=== PATIENT | female | born 1955 | race Caucasian/White ===

== ENCOUNTER → 2016-10-08 | Outpatient (CLI) | payer BC ==
[~2016-10-08] MED LIST: IBUP-1428 PO; OXYC-57 PO; PROG100C6 PO
== END | disposition home or self-care (01) ==
LOC: C.PAPS 13:41
PROVIDERS: ATTEND Obstetrics & Gynecology
DX: Z01.419 Encounter for gynecological examination (general) (routine) without abnormal findings (principal)

== ENCOUNTER → 2017-03-12 | Outpatient (CLI) | payer BC ==
--- NOTE | 2017-03-15 08:20 | DIAGNOSTIC IMAGING REPORT ---
RIGHT KNEE 2 VIEWS HISTORY: Joint pain, knee R Right COMPARISON: None. FINDINGS: There is no fracture or dislocation. Soft tissues are unremarkable. No radiopaque foreign bodies. No knee effusion. Cartilage spaces are maintained for age. Tiny marginal osteophytes at the medial and patellofemoral compartments. IMPRESSION: No fractures. Minimal degenerative change. Electronically signed by: Patricio To M.D. 03/15/2017 8:18 AM Dictated Date/Time: 03/15/2017 8:16 AM
== END | disposition home or self-care (01) ==
LOC: C.RADPV 15:17
PROVIDERS: ATTEND Neuromusculoskeletal Medicine & OMM
DX: M25.561 Pain in right knee (principal)

== ENCOUNTER → 2017-04-30 | Outpatient (CLI) | payer BC ==
--- NOTE | 2017-04-30 15:57 | MAMMOGRAPHY REPORT ---
BILATERAL DIGITAL SCREENING MAMMOGRAM TOMOSYNTHESIS WITH CAD: 04/30/2017 CLINICAL HISTORY: Routine screening. Patient has no complaints. TECHNIQUE: Breast tomosynthesis in addition to standard 2D mammography was performed. Current study was also evaluated with a Computer Aided Detection (CAD) system. COMPARISON: Comparison is made to exams dated: 03/05/2016 mammogram, 02/14/2015 mammogram, 02/13/2014 m ammogram, 02/09/2013 mammogram, 02/09/2012 mammogram, and 12/22/2010 mammogram - [facility] nter. BREAST COMPOSITION: There are scattered areas of fibroglandular density in both breasts. FINDINGS: No suspicious masses, calcifications, or areas of architectural distortion are noted in ei ther breast. There has been no significant interval change compared to prior exams. IMPRESSION: ACR BI-RADS CATEGORY 1: NEGATIVE There is no mammographic evidence of malignancy. A 1 year screening mammogram is recommended. The pa tient will receive written notification of the results. Approximately 10% of breast cancers are not detected with mammography. A negative mammographic report should not delay biopsy if a clinically suggestive mass is present. Brigitte Anthony M.D. ah/:04/30/2017 14:53:12 [employer]ator Plant Laborer: Martha PARRISH(Chase)(M), [facility] letter sent: Normal 1/2 BI-RADS Code: ACR BI-RADS Category 1: Negative
== END | disposition home or self-care (01) ==
LOC: C.MAMM 13:41
PROVIDERS: ATTEND Obstetrics & Gynecology
DX: Z12.31 Encounter for screening mammogram for malignant neoplasm of breast (principal)

== ENCOUNTER → 2017-10-12 | Outpatient (CLI) | payer BC | END | disposition home or self-care (01) | LOC: C.PAPS 11:34 | PROVIDERS: ATTEND Obstetrics & Gynecology | DX: Z01.419 Encounter for gynecological examination (general) (routine) without abnormal findings (principal) ==

== ENCOUNTER 2018-08-31 08:41 | Inpatient (IN) ==
--- NOTE | 2018-08-03 09:29 | Anesthesiology Consultation ---
Date of Service August 03, 2018 Assessment & Plan (1) Encounter for pre-operative examination: Chart Review Chart Review: Acceptable Risk for Surgery and Patient seen in Pre Admission Testing Consults Requested none Teaching & Discussion Pre-Anesthesia Teaching/Discussion Notes: Instructed NPO after midnight before surgery, except medications with 15 cc of water. Medication instructions provided according to the PAT guidelines. History Surgery Operation Date: 08/31/18 09:05 Proposed Procedures p Left Total Knee Arthroplasty - Ramsey Hughes MD Height/Weight Height: 5 ft 1.5 in Weight: 95.6 kg Allergies Allergy/AdvReac Type Severity Reaction Status Date / Time Sulfa (Sulfonamide Allergy Intermediate SWELLING, Verified 08/02/18 15:25 Antibiotics) SOB Medications Home Medications Medication Instructions Recorded Confirmed Last Taken cholecalciferol (vitamin D3) 1,000 unit PO QAM 08/02/18 08/02/18 Unknown [Vitamin D3] multivitamin 1 tab PO DAILY 08/02/18 08/02/18 Unknown omega 0-imt-qla-fish oil [Fish Oil] 1 cap PO DAILY 08/02/18 08/02/18 Unknown ranitidine HCl 150 mg PO DAILY PRN 08/02/18 08/02/18 Unknown acetaminophen [Tylenol] 325 mg PO Q6H PRN 08/03/18 08/03/18 Unknown diphenhydramine HCl [Benadryl] 25 mg PO HS PRN 08/03/18 08/03/18 Unknown halobetasol propionate 1 applic/day TOPICAL DAILY PRN 08/03/18 08/03/18 Unknown ibuprofen 200 mg PO QID PRN 08/03/18 08/03/18 Unknown pseudoephedrine HCl 1 tab PO DAILY PRN 08/03/18 08/03/18 Unknown Past Medical History Medical History GERD (gastroesophageal reflux disease) Nausea and vomiting after administration of anesthetic agent Obesity Osteoarthritis Past Family History Family History Father Family history of diabetes mellitus Daughter No problems noted. Past Surgical History Surgical History History of arthroscopy BILATERAL KNEE History of bilateral tubal ligation History of carpal tunnel release RIGHT History of cholecystectomy LAP History of colonoscopy History of esophagogastroduodenoscopy (EGD) S/P arthroscopy of shoulder LEFT Past Anesthesia History No Hx of Anesthesia Complications and No Family Hx of Anesthesia Complications History of PONV Yes Motion Sickness Screening History of Motion Sickness: Yes Social History Smoking Status: Never smoker Do You Dip or Chew Tobacco: No Hx Alcohol Use: Yes Alcohol type: wine alcohol intake frequency: holidays/special occasions only Hx Substance Use: No substance use type: does not use Exercise / Class Metabolic Activity III < 4 Walking/Shop/Light housework (Limited due to knee pain. Able to slowly/ painfully climb stairs due to knees. Denies CP. Does get some SOB with activity since gaining 40lb over last 5 years. ) Review of Systems Patient denies chest pain, shortness of breath, reflux (controlled with Zantac) , cough, wheezing, palpitations. +GUDINO (since gaining 40 lbs over last 5 years due to not walking from knee pain) +joint pain (knees, hands, back, etc) Physical Exam Vital Signs BP: 138/85 P: 80 R: 16 T: 97.4 SPO2: 97% on RA Constitutional + obese ENMT Mouth: + dental restorations Thyromental Distance: > or= 3.5 Finger Breadths (3.5) Mallampati Class: II Neck normal visual inspection and trachea midline; neck extension not limited Respiratory normal respiratory effort Auscultation: lungs clear to auscultation bilaterally Cardiovascular Rate/Rhythm: regular rate and regular rhythm Heart Sounds: no murmur Vessels: no carotid bruit Neurologic moves all extremities Psychiatric Orientation: alert and oriented x 3 Testing Electrocardiogram Date: 08/03/18 Findings: + NSR @ (75) When compared with ECG of 08/17/09, there is a questionable change is QRS axis. Chest X-Ray Date: 08/03/18 Findings: + NAD Laboratory Results 08/03/18 10:09 08/03/18 10:09 Blood Type O Positive 08/03/18 10:09 Antibody Screen NEGATIVE 08/03/18 10:09 PT 10.0 Seconds (9.0-12.0) 08/03/18 10:09 INR 1.0 (0.9-1.1) 08/03/18 10:09 APTT 27.8 Seconds (21.0-31.0) 08/03/18 10:09
--- NOTE | 2018-08-03 09:32 | PAT Medication Instructions ---
Medication Instructions Date of Service August 03, 2018 Home Medications cholecalciferol (vitamin D3) 1,000 unit PO QAM multivitamin 1 tab PO DAILY omega 8-vox-kez-fish oil [Fish Oil] 1 cap PO DAILY ranitidine HCl 150 mg PO DAILY NEEDED acetaminophen [Tylenol] 325 mg PO Q6H PRN diphenhydramine HCl [Benadryl] 25 mg PO HS PRN halobetasol propionate 1 applic/day TOPICAL DAILY PRN ibuprofen 200 mg PO QID PRN pseudoephedrine HCl 1 tab PO DAILY PRN ASK your surgeon for instructions ibuprofen 200 mg PO QID PRN STOP taking 2 weeks before surgery omega 9-kif-awz-fish oil [Fish Oil] 1 cap PO DAILY STOP taking 24 hours before surgery halobetasol propionate 1 applic/day TOPICAL DAILY PRN DO NOT take the morning of surgery cholecalciferol (vitamin D3) 1,000 unit PO QAM multivitamin 1 tab PO DAILY diphenhydramine HCl [Benadryl] 25 mg PO HS PRN pseudoephedrine HCl 1 tab PO DAILY PRN Take morning of surgery With a small sip of water, OTHERWISE NOTHING TO EAT OR DRINK AFTER MIDNIGHT: ranitidine HCl 150 mg PO DAILY NEEDED acetaminophen [Tylenol] 325 mg PO Q6H PRN Take evening before surgery acetaminophen [Tylenol] 325 mg PO Q6H PRN diphenhydramine HCl [Benadryl] 25 mg PO HS PRN pseudoephedrine HCl 1 tab PO DAILY PRN Other Notes If you have any questions please call us at [phone] or [phone] or [phone] or [phone]
[2018-08-03 10:29] LABS: Basophils # (auto) 0.03 K/uL (0-0.2); Basophils % (auto) 0.5 %; Eosinophils # (auto) 0.15 K/uL (0-0.5); Eosinophils % (auto) 2.3 %; Hematocrit (blood only) 41.4 % (37-47); Hemoglobin 13.5 g/dL (12.0-16.0); Immature Granulocytes # (auto) 0.01 K/uL (0.00-0.02); Immature Granulocytes % (auto) 0.2 %; Lymphocytes # (auto) 1.62 K/uL (1.2-3.4); Lymphocytes % (auto) 25.1 %; Mean Corpuscular Hgb Conc 32.6 g/dL (32-36); Mean Platelet Volume 10.6 fL (7.4-10.4); Monocytes # (auto) 0.64 K/uL (0.11-0.59); Monocytes % (auto) 9.9 %; Neutrophils # (auto) 4.01 K/uL (1.4-6.5); Platelet Count 249 K/uL (130-400); RDW Coefficient of Variation 13.8 % (11.5-14.5); RDW Standard Deviation 43.9 fL (36.4-46.3); Red Blood Count 4.76 M/uL (4.2-5.4); White Blood Count 6.46 K/uL (4.8-10.8)
--- NOTE | 2018-08-03 10:36 | XRay Report ---
XR chest Pre-admission PA/Lat CLINICAL HISTORY: 62 years-old Female presenting with preoperative assessment. TECHNIQUE: PA and lateral views of the chest were obtained. COMPARISON: None. FINDINGS: Cardiomediastinal silhouette normal. Lungs and pleural spaces clear. Degenerative changes of the thor acic spine. Cholecystectomy clips noted. IMPRESSION: 1. No acute cardiopulmonary disease. Electronically signed by: Elie Bates M.D. 08/03/2018 10:35 AM
[2018-08-03 10:42] LABS: Partial Thromboplastin Ratio 1.1; Partial Thromboplastin Time 27.8 Seconds (21.0-31.0)
[2018-08-03 13:30] LABS: BUN Creatinine Ratio 13.2 (10-20); Calcium 9.5 mg/dl (8.5-10.1); Creatinine Clr Calc Pharmacy 74.1 ml/min; Est GFR (African American) 86.3; Est GFR (Non-African American) 74.5; Potassium 3.8 mmol/L (3.5-5.1)
--- NOTE | 2018-08-25 09:06 | History and Physical Report ---
DATE OF ADMISSION: 08/31/2018 CHIEF COMPLAINT: Bilateral knee pain, left side greater than the right. HISTORY OF PRESENT ILLNESS: The patient is a 62-year-old female who presents for followup and surgical treatment of her knees. She has got a long history of bilateral knee pain and discomfort, left side greater than right. She has been through extensive conservative treatment including steroid shots which helped for about a month or so and viscosupplementation which did not really help at all. Pain has been progressive in nature. It is mostly on the medial side of her knee, but some global pain. The more she walks, the more it hurts. She has nighttime pain. She would like to proceed with surgical treatment. Of note, she does have history of knee arthroscopy in both knees back in 2005. PAST MEDICAL HISTORY: Significant for: 1. Known gastroesophageal reflux disease. 2. Low back pain. 3. Obesity with BMI of 40. PAST SURGICAL HISTORY: Previous surgeries include: 1. Tubal ligation. 2. Bilateral knee arthroscopies done about 12 years ago. 3. Shoulder surgery. 4. Carpal tunnel release. ALLERGIES: SULFA. CURRENT MEDICINES: Include: 1. Multivitamin. 2. Vitamin D. 3. Fish oil. 4. Ibuprofen. 5. Allergy meds. SOCIAL HISTORY: A 62-year-old female. She is . Lives in [place]. Does not smoke. FAMILY HISTORY: Noncontributory. REVIEW OF SYSTEMS: Negative for diabetes, neurologic problems, vascular problems or bleeding disorders. No chest pain or shortness of breath. No history of DVT or PE. No known bleeding problems. PHYSICAL EXAMINATION: GENERAL: Reveals a healthy, pleasant middle-aged female. Looks to be in pretty good health. HEENT: Benign. NECK: Supple. No lymphadenopathy. LUNGS: Clear to auscultation. HEART: Regular rate and rhythm. ABDOMEN: Soft, nontender, nondistended. EXTREMITIES: Grossly neurovascularly intact except as follows: Examination of both knees reveals patient walks with a little bit of a waddling gait. She got varus alignment to both knees. She has got well healed portal sites over both knees. She has small effusions in both knees. She is tender over the medial joint line bilaterally. Range of motion is symmetric with near full extension to about 125 degrees of flexion. There is no instability and no pain with hip motion on either side. X-RAYS: X-rays of both knees reveal advanced medial compartment arthritis. The left side is a little bit worse than the right. She has got near complete loss of her joint space. She has got some patellofemoral disease as well. ASSESSMENT: A 62-year-old female with history of bilateral knee scopes in the past with bilateral knee degenerative joint disease. The left side is more symptomatic than the right. She has failed conservative treatment and would like to proceed with left knee replacement. PLAN: We will take her to the operating room and do a left total knee replacement. The risks and benefits of this procedure were explained to the patient including but not limited to DVT, PE, , infection, neurological injury, vascular injury, bleeding problem, pain, limited range of motion, stiffness, failure to relieve symptoms, incomplete relief of symptoms, need for further surgery in the future, incomplete relief of symptoms, need for revision surgery. The patient understands and desires to proceed. Informed consent was obtained. She did not do well with pain medicines, we will make sure she gets some Zofran and we will probably send her home with some Zofran after her hospital stay.
[~2018-08-31 08:41] MED LIST changes: +ACETAMINOPHEN 500 MG TAB PO SCH; +BUPIVACAINE 0.5 % 5 MG/1 ML PF 10ML VIAL ONE; +BUPIVACAINE LIPOSOME/PF 266 MG, BUPIVACAINE/EPINEPHRINE 50 ML, SODIUM CHLORIDE 0.9% 30 ... INFIL SCH; +CEFAZOLIN 2000MG 2,000 MG/15 ML SYR IV SCH; +EPINEPHrine INJ 1 MG/ML AMP ONE; +FAMOTIDINE 20 MG TAB PO SCH; +GABAPENTIN 300 MG x 2 PO SCH; -IBUP-1428 PO; +LR 500ML BOLUS, THEN 15ML/HR IV SCH; +LR 60ML/HR IV SCH; +METOCLOPRAMIDE HCL 10 MG TABLET PO SCH; -OXYC-57 PO; -PROG100C6 PO; +ROPIVACAINE 0.5% 5 MG/ML 30 ML VIAL ONE; +SCOPOLAMINE 1.5 MG TDSY TD SCH; +TRANEXAMIC ACID 1,000 MG **IV Intra-op IV SCH
--- NOTE | 2018-08-31 08:48 | History & Physical Bridge Note ---
Date of Service August 31, 2018 History & Physical Bridge Note I have examined the patient, reviewed the History & Physical and in the interval since the performance of the History & Physical I have noted the following changes of clinical significance: no changes noted
[2018-08-31] MEDS ORDERED: MIDAZOLAM HCL 1 MG/ML 2ML VIAL ONE ×2 (09:26→10:48)
[2018-08-31] MEDS ORDERED: KETAMINE HCL INJ 50 MG/ML 10 ML VIAL ONE (10:20)
[2018-08-31] MEDS ORDERED: fentaNYL citrate 100 MCG/2 ML VIAL IV PRN (10:24)
[2018-08-31] MEDS ORDERED: ATROPINE SULFATE 0.1 MG/ML 10ML SYR IV PRN (10:24)
[2018-08-31] MEDS ORDERED: PHENYLEPHRINE 100MCG/ML 5ML SYR IV PRN (10:24)
[2018-08-31] MEDS ORDERED: ePHEDrine sulfate 50 MG/ML AMP IV PRN (10:24)
[2018-08-31] MEDS ORDERED: HYDROmorphone INJ 1 MG/ML SYRINGE IV PRN (10:24)
[2018-08-31] MEDS ORDERED: ONDANSETRON INJ 2 MG/ML 2 ML VIAL IV PRN ×2 (10:24→14:27)
[2018-08-31] MEDS ORDERED: MEPERIDINE HCL 25 MG/ML CARP IV PRN (10:24)
[2018-08-31] MEDS ORDERED: LABETALOL HCL IV 5 MG/ML 20ML IV PRN (10:24)
[2018-08-31] MEDS ORDERED: BUPIVACAINE 0.25% 30 ML VIAL ONE (11:17)
[2018-08-31] MEDS ORDERED: SODIUM CHLORIDE 0.9% PF 50 ML VIAL ONE (11:17)
[2018-08-31] MEDS ORDERED: BUPIVACAINE LIPOSOME 1.3% 266 MG/20 ML VIAL ONE (11:17)
[2018-08-31] MEDS ORDERED: EPINEPHrine INJ 1 MG/ML AMP ONE (11:17)
[2018-08-31] MEDS ORDERED: BACITRACIN INJ 50,000 UNIT VIAL ONE (11:17)
[2018-08-31] MEDS ORDERED: PROPOFOL IV EMULSION 10 MG/ML 20 ML VIAL IV ONE (12:03)
[2018-08-31] MEDS ORDERED: DEXAMETHASONE SOD INJ 4 MG/ML VIAL ONE (12:03)
[2018-08-31] MEDS ORDERED: LIDOCAINE HCL 2% 2 ML VIAL/AMP(20MG/ML) INFIL ONE (12:03)
[2018-08-31] MEDS ORDERED: GLYCOPYRROLATE 0.2 MG/ML VIAL ONE (12:03)
[2018-08-31] MEDS ORDERED: ONDANSETRON INJ 2 MG/ML 2 ML VIAL ONE (12:03)
--- NOTE | 2018-08-31 13:28 | Post Operative Brief Note ---
Immediate Post Op Note v1 Date of Surgery August 31, 2018 Pre & Post Diagnosis Operation Date: 08/31/18 11:25 Pre-Op Diagnosis: Left Knee Degenerative Joint Disease Post-Op Diagnosis: Left Knee Degenerative Joint Disease Procedure Operation Date: 08/31/18 11:25 Actual Procedures p Left Total Knee Arthroplasty(Left) - Ramsey Hughes MD Surgeon Ramsey Hughes MD Tank Cleaner Karo, PAC Estimated Blood Loss 50 Findings Consistent with Post-Op Diagnosis Fluids 1600 cc Specimens Left Knee Drains Caraballo Catheter Anesthesia Type Spinal MAC Complications none Disposition Accompanied Patient To Recovery: No Disposition: Recovery Room
--- NOTE | 2018-08-31 13:47 | XRay Report ---
LEFT KNEE 2 VIEWS History: Left total knee arthroplasty. Degenerative arthritis. Postop. FINDINGS: The patient is status post a left total knee arthroplasty. The hardware is intact. No fract ure or dislocation. Skin henok are in place. IMPRESSION: Left total knee arthroplasty. No evidence for hardware complication. Electronically signed by: Patricio To M.D. 08/31/2018 1:46 PM
--- NOTE | 2018-08-31 14:10 | Anesthesiology Progress Note ---
Date of Service August 31, 2018 Anesthesia Post Procedure Vital Signs Vital Signs: Temp Pulse Resp BP BP Pulse Ox 08/31/18 14:05 37.1 C 101 H 18 130/77 98 08/31/18 13:55 104 H 18 136/72 98 08/31/18 13:45 37.8 C H 102 H 18 125/69 100 08/31/18 13:35 37.8 C H 113 H 18 126/67 100 08/31/18 09:23 36.8 C 20 160/97 H 20 L Pain Intensity Left Knee: Pain Intensity: 1 Notes Mental Status: alert / awake / arousable Patient Amnestic to Procedure: Yes Nausea / Vomiting: adequately controlled Pain: adequately controlled Airway Patency, RR, SpO2: stable & adequate BP & HR: stable & adequate Hydration State: stable & adequate Neuraxial Anesthesia: was administered and sensory block is resolving Anesthetic Complications: no major complications apparent and Pt Satisfied with anesthetic care
[2018-08-31] MEDS ORDERED: NALOXONE HCL 0.4 MG/1 ML VIAL/CARP IV PRN (14:27)
[2018-08-31] MEDS ORDERED: MAGNESIUM HYDROXIDE SUSP 30 ML UDC PO PRN (14:27)
[2018-08-31] MEDS ORDERED: BISACODYL 10 MG SUPP PR PRN (14:27)
[2018-08-31] MEDS ORDERED: PSEUDOEPHEDRINE HCL 30 MG TAB PO PRN (14:27)
[2018-08-31] MEDS ORDERED: HYDROmorphone INJ 0.5 MG/0.5 ML SYR IV PRN (14:27)
[2018-08-31] MEDS ORDERED: METOCLOPRAMIDE HCL INJ 5 MG/ML 2 ML VIAL IV PRN (14:27)
[2018-08-31] MEDS: SODIUM CHLORIDE 0.9% 1000ML 1,000 ML IV SCH (14:44)
[2018-08-31] MEDS: CHECK SCOPOLAMINE PATCH PLACEMENT SCH (16:46)
[2018-08-31] MEDS: KETOROLAC 30 MG/ML VIAL IV SCH ×2 (16:48→21:18)
[2018-08-31] MEDS: ACETAMINOPHEN 500 MG TAB PO SCH (16:49)
[2018-08-31] MEDS: FERROUS GLUCONATE 324 MG TAB PO SCH (17:53)
[2018-08-31] MEDS ORDERED: TRANEXAMIC ACID 1,000 MG in 0.9 % SODIUM CHLORIDE 100 ML IV SCH (19:30)
[2018-08-31] MEDS: DOCUSATE SODIUM 100 MG CAP PO SCH (20:43)
[2018-08-31] MEDS: ASPIRIN 81 MG ECTAB PO SCH (20:44)
[2018-08-31] MEDS: SENNA 8.6 MG TAB PO SCH (20:44)
[2018-08-31] MEDS: CEFAZOLIN 2000MG 2,000 MG/15 ML SYR IV SCH (20:44)
[2018-08-31] MEDS: TAPENTADOL HCL ER 50 MG TABCR PO SCH (20:48)
--- NOTE | 2018-08-31 23:45 | Operative Report ---
DATE OF OPERATION: 08/31/2018 SURGEON: Ramsey Hughes MD GENERAL LABOR: MITZY Streeter PREOPERATIVE DIAGNOSIS: Left knee degenerative joint disease. POSTOPERATIVE DIAGNOSIS: Same. PROCEDURE PERFORMED: Left cemented posterior stabilized total knee arthroplasty. COMPLICATIONS: None. ESTIMATED BLOOD LOSS: 50 mL. FLUID REPLACEMENT: 1600 mL of crystalloid fluid replacement. ANESTHESIA: Spinal with adductor canal block. DRAINS: None. SPECIMENS: Left knee sent for pathology. OPERATIVE INDICATIONS: The patient is a 62-year-old female who has had a long history of bilateral knee pain and discomfort. She underwent knee arthroscopy 10+ years ago, which helped her for quite a number of years. Over the past several years, she developed increased pain and discomfort in both knees. The left knee is a bit worse than the right. She has failed all conservative care and elected to proceed with operative treatment. OPERATIVE FINDINGS: Operative findings revealed advanced left knee DJD. She had grade 4 changes of the medial as well as the patellofemoral compartment. She had a varus deformity to her knee with a moderate-sized joint effusion. Not a lot of bony eburnation, but full thickness cartilage loss. OPERATIVE IMPLANTS: Operative implants consisted of: 1. Biomet Vanguard size 57.5 left posterior stabilized femoral component. 2. A Biomet size 67 tibial tray. 3. A 10 mm posterior stabilized polyethylene insert. 4. A 28 x 8 all poly patella. OPERATIVE PROCEDURE: The patient was taken to the operating room, identified, and placed in the operating table in supine position. All contact areas were appropriately padded. IV antibiotics were provided by anesthesia team. Spinal anesthetic and adductor canal block had been provided in the holding area. Caraballo catheter was placed in sterile fashion. The left thigh tourniquet was then placed and left lower extremity was then prepped and draped in the usual sterile fashion. The left leg was elevated and exsanguinated with Esmarch and tourniquet was placed at 300 mmHg. An anterior approach to the left knee was then performed through a longitudinal incision centered over the patella. Sharp dissection was carried through subcutaneous tissues down to the level of the extensor mechanism. A medial parapatellar arthrotomy incision was made. Some subperiosteal dissection was carried out medially. The fat pad was resected from beneath the patellar tendon. Lateral patellofemoral ligament was released. The patella was everted and the knee was flexed. The osteophytes were taken off the distal femur. The ACL and PCL were then released from the distal femur and the tibia subluxated anteriorly. The external tibial alignment jig was then placed in the anterior face of the tibia and adjusted 14 mm medially. A proximal tibial cut was made to remove about a millimeter or two of bone from the most deficient aspect of the medial tibial plateau. Some osteophytes were taken off medial and posteromedially. The tibia was then sized to a size 67. Attention was then drawn to the femur. The distal femur was entered with a sharp drill bit. Intramedullary canal was suctioned. A left 5-degree valgus cutting guide was placed. Distal femoral cutting block was pinned in place. Distal femoral cut was made to take an additional 3 mm of bone off the distal femur. Femur was then sized to a size 57.5. We downsized this just slightly. The AP cutting block was pinned parallel to the epicondylar axis, which was 6 degrees of external rotation. The anterior cut, anterior chamfer, posterior cut, posterior chamfer cuts were made. Box cutting guide was placed and adjusted slightly lateral and the box cut was made. The knee was flexed. The remnants of the medial and lateral menisci were excised. The osteophytes were taken off the posterior aspect of the femur. A trial femoral component was placed. The tibial tray was pinned in maximum rotation, and drill and stem punch were used to create a defect in the proximal tibia for the tibial tray. The knee was then trialed and a 10 mm insert fit most appropriately. Attention was then drawn to the patella. The patella was cleaned of all soft tissues. Patellar thickness measured 21 mm in thickness, it was cut down to 13. It was sized to a size 28 patella. The locals were drilled for a 28 patella. The lateral osteophyte was removed. Patellar button was placed. Knee was taken through range of motion and patella tracked nicely with no thumbs test. Attention was then drawn toward placement of permanent components. All trial components were removed. Bone plug was placed in the distal femur to limit blood loss. A double batch of Palacos G cement was mixed. A Biomet Vanguard size 57.5 left posterior stabilized femoral component, Biomet size 67 tibial tray, a 10-mm posterior stabilized polyethylene insert, and a 28 x 8 all poly patella were then cemented in place. Knee was brought out into full extension until cement hardened. A final cement check was then performed. The pericapsular tissues were injected with a total of 100 mL of a combination of 20 mL of Exparel, 30 mL of normal saline, 50 mL of 0.25% Marcaine with epinephrine. The patient did receive 1 gram of tranexamic acid. The tourniquet was then let down for a tourniquet time of 60 minutes. Hemostasis was assured using electrocautery. The extensor mechanism was then closed with a combination of #1 PDS suture and #1 Vicryl suture in a [id number] fashion. Extensor mechanism was checked and found to be intact. The subcutaneous tissues were then closed with 2-0 Dexon suture in buried interrupted fashion. The skin was closed with skin henok. Leg was then cleaned and dried and a sterile dressing of Xeroform, 4 x 4's, sterile cast padding, and Neo bandage were applied. The patient was then transferred to the recovery room in stable condition. The patient tolerated the procedure well with no complications. All needle and sponge counts were correct at the end of the operation. I attest to the content of the Intraoperative Record and any orders documented therein. Any exception s are noted below.
[2018-09-01] MEDS: CHECK SCOPOLAMINE PATCH PLACEMENT SCH (01:02)
[2018-09-01] MEDS: ACETAMINOPHEN 500 MG TAB PO SCH ×3 (01:03→17:46)
[2018-09-01] MEDS: SODIUM CHLORIDE 0.9% 1000ML 1,000 ML IV SCH (01:04)
[2018-09-01] MEDS ORDERED: Nursing to Pharmacy Communication ONE ×2 (01:42→01:57)
[2018-09-01] MEDS: OXYCODONE HCL IR 5 MG TAB (IMMEDIATE RELEASE) PO PRN ×2 (01:51→13:45)
[2018-09-01] MEDS: KETOROLAC 30 MG/ML VIAL IV SCH ×4 (04:50→22:03)
[2018-09-01] MEDS: CEFAZOLIN 2000MG 2,000 MG/15 ML SYR IV SCH (04:56)
--- NOTE | 2018-09-01 07:30 | Progress Note ---
DATE: 09/01/2018 SUBJECTIVE: A 62-year-old white female postop day 1 from left knee replacement. She is doing well. The nausea that she had last night is improved. Pain is controlled. No chest pain or shortness of breath. Not feeling dizzy or lightheaded. OBJECTIVE: VITAL SIGNS: Temperature 36.8. Vital signs stable. GENERAL: Physical examination reveals a healthy, pleasant middle-aged female. She is sitting up in bed, looks pretty comfortable. LUNGS: Clear to auscultation. HEART: Regular rate and rhythm. ABDOMEN: Soft, nontender, nondistended. EXTREMITIES: Grossly neurovascularly intact except as follows: Examination of the left lower extremity reveals the leg to be well aligned. Dressing is clean, dry and intact. She can dorsiflex and plantarflex her foot appropriately. She is neurologically intact. LABORATORY DATA: Labs are pending. ASSESSMENT: A 62-year-old white female postop day 1 from left knee replacement, doing pretty well. Pain is controlled. The nausea has resolved. PLAN: 1. DVT prophylaxis including thigh-high TEDs, SCDs, and aspirin twice a day. 2. PT/OT. Weight bear as tolerated. Left total knee protocol. 3. Pain control, doing pretty well with current pain regimen. 4. Disposition: Plan to discharge to home with some home health once adequately recovered.
[2018-09-01 07:45] LABS: Hematocrit (blood only) 35.3 % (37-47); Hemoglobin 11.3 g/dL (12.0-16.0); Mean Corpuscular Volume 88.5 fL (80-100); Mean Platelet Volume 10.5 fL (7.4-10.4); Platelet Count 226 K/uL (130-400); RDW Coefficient of Variation 13.9 % (11.5-14.5); RDW Standard Deviation 45.4 fL (36.4-46.3); Red Blood Count 3.99 M/uL (4.2-5.4); White Blood Count 12.81 K/uL (4.8-10.8)
[2018-09-01 08:23] LABS: BUN Creatinine Ratio 12.8 (10-20); Calcium 8.4 mg/dl (8.5-10.1); Creatinine Clr Calc Pharmacy 66.8 ml/min; Est GFR (African American) 77.3; Est GFR (Non-African American) 66.7; Potassium 3.9 mmol/L (3.5-5.1)
[2018-09-01] MEDS: CHOLECALCIFEROL 1,000 UNITS TAB PO SCH (08:27)
[2018-09-01] MEDS: MULTIVITAMIN TAB PO SCH ×2 (08:27→08:28)
[2018-09-01] MEDS: ASPIRIN 81 MG ECTAB PO SCH ×2 (08:27→20:13)
[2018-09-01] MEDS: FERROUS GLUCONATE 324 MG TAB PO SCH ×2 (08:28→18:02)
[2018-09-01] MEDS: OMEGA-3 (PURIFIED FISH OIL) 1 GM CAP PO SCH (08:28)
[2018-09-01] MEDS: TAPENTADOL HCL ER 50 MG TABCR PO SCH ×2 (08:31→20:14)
[2018-09-01] MEDS: DOCUSATE SODIUM 100 MG CAP PO SCH ×2 (08:34→20:13)
--- NOTE | 2018-09-01 09:34 | Anesthesiology Progress Note ---
Date of Service September 01, 2018 Anesthesia Post Procedure Vital Signs Vital Signs: Temp Pulse Pulse Resp BP Pulse Ox 09/01/18 08:00 36.8 C 69 16 113/77 96 09/01/18 04:17 36.8 C 76 16 117/76 96 08/31/18 23:50 37.1 C 74 16 125/80 93 08/31/18 19:51 36.7 C 89 18 129/73 94 08/31/18 17:28 36.5 C 105 H 16 125/82 96 08/31/18 16:24 36.4 C L 98 H 16 138/83 100 08/31/18 15:23 36.8 C 98 H 16 144/84 H 100 08/31/18 14:50 101 H 16 129/82 97 08/31/18 14:20 36.7 C 99 H 18 127/79 99 08/31/18 14:05 37.1 C 101 H 18 130/77 98 08/31/18 13:55 104 H 18 136/72 98 08/31/18 13:45 37.8 C H 102 H 18 125/69 100 08/31/18 13:35 37.8 C H 113 H 18 126/67 100 Pain Intensity Left Knee: Pain Intensity: 2 Notes Mental Status: alert / awake / arousable Nausea / Vomiting: adequately controlled Pain: adequately controlled Airway Patency, RR, SpO2: stable & adequate BP & HR: stable & adequate Hydration State: stable & adequate Neuraxial Anesthesia: was administered and sensory block resolved Anesthetic Complications: no major complications apparent and Pt Satisfied with anesthetic care
[2018-09-01] MEDS: SENNA 8.6 MG TAB PO SCH (20:13)
[2018-09-02] MEDS: ACETAMINOPHEN 500 MG TAB PO SCH ×2 (02:03→07:32)
[2018-09-02] MEDS: KETOROLAC 30 MG/ML VIAL IV SCH ×2 (04:46→09:30)
[2018-09-02] MEDS: MULTIVITAMIN TAB PO SCH ×2 (07:29→07:31)
[2018-09-02] MEDS: DOCUSATE SODIUM 100 MG CAP PO SCH (07:31)
[2018-09-02] MEDS: TAPENTADOL HCL ER 50 MG TABCR PO SCH (07:31)
[2018-09-02] MEDS: FERROUS GLUCONATE 324 MG TAB PO SCH (07:31)
[2018-09-02] MEDS: ASPIRIN 81 MG ECTAB PO SCH (07:31)
[2018-09-02] MEDS: OMEGA-3 (PURIFIED FISH OIL) 1 GM CAP PO SCH (07:31)
[2018-09-02] MEDS: CHOLECALCIFEROL 1,000 UNITS TAB PO SCH (07:32)
--- NOTE | 2018-09-02 11:27 | Progress Note ---
DATE: 09/02/2018 SUBJECTIVE: A 62-year-old white female postop day 2 from a left knee replacement. She is doing quite well. Pain is very well controlled. Therapy went well. Denies any chest pain or shortness of breath. Not feeling dizzy or lightheaded. OBJECTIVE: VITAL SIGNS: Temperature 36.7. Vital signs stable. GENERAL: Physical examination reveals a healthy pleasant, middle-aged female. She is sitting up in bed, looks comfortable. EXTREMITIES: Examination of the left leg reveals the leg to be well aligned. Dressing is clean, dry and intact. She can dorsiflex and plantarflex her foot appropriately. She is neurologically intact. ASSESSMENT: A 62-year-old white female postop day 2 from left knee replacement, doing well. Pain is controlled. She says she is ready to go home. PLAN: 1. DVT prophylaxis including thigh-high TEDs, SCDs, and aspirin twice a day. 2. PT and OT. Weight bear as tolerated. Left total knee protocol. 3. Pain control, doing well with current pain regimen. 4. Disposition: Plan to discharge to home with some home health today after therapy.
--- NOTE | 2018-09-09 08:58 | Discharge Summary ---
ADMITTING PHYSICIAN AND SURGEON: Dr. Hughes. ADMITTING DIAGNOSIS: Left knee degenerative joint disease. SURGERY PERFORMED: Left total knee arthroplasty. SECONDARY DIAGNOSES: Gastroesophageal reflux disease, low back pain, obesity. CONSULTS: None obtained. HISTORY AND PHYSICAL EXAMINATION: Well documented in patient's chart. HOSPITAL COURSE: The patient was admitted on 08/31/2018 and underwent total knee arthroplasty, tolerated the procedure well. There were no complications. She was transferred to the PACU postoperatively and later to the orthopedic floor for further care. She was given Ancef for antibiotic prophylaxis, LIGIA stockings, SCDs and aspirin for DVT prophylaxis. Hemoglobin, hematocrit and vital signs were monitored during her hospital stay and remained stable. She did not require blood transfusions. There were no complications. By postoperative day 2, she was tolerating a regular diet, pain was controlled with oral pain medicine. She was participating in physical therapy. On postop day 2, she was discharged home, set up with home health services, given printed discharge instructions including new prescriptions for extra strength Tylenol, aspirin, Zofran and oxycodone. Continue home medicines with the exception of her home dose of Tylenol, which was changed. Continue physical therapy, weightbearing as tolerated, LIGIA stockings. Follow up in approximately 2 weeks postop, or sooner if there are any problems or concerns.
== END 2018-09-02 10:16 | disposition home health service (06) | DRG 470 ==
LOC: ASU 08:41 → 3E 13:32